=== PATIENT | female | born 1965 | race Caucasian/White ===

== ENCOUNTER 2019-01-15 11:52 | Emergency (ER) | payer SELFPAY ==
[~2019-01-15] VITALS: Ht 162.6 cm; Wt 131.5 kg
[2019-01-15 13:06] LABS: BASOPHILS ABSOLUTE AUTO 0.03 K/mm3 (0.00-0.23); BASOPHILS PERCENT AUTO 0 % (0-2); EOSINOPHILS ABSOLUTE AUTO 0.21 K/mm3 (0.00-0.68); EOSINOPHILS PERCENT AUTO 3 % (0-6); Hematocrit 43.2 % (33.0-51.0); Hemoglobin 13.7 g/dL (11.5-16.0); IMMATURE GRAN ABSOLUTE AUTO 0.03 K/mm3 (0.00-0.10); IMMATURE GRAN PERCENT AUTO 0 % (0-1); LYMPHOCYTES ABSOLUTE AUTO 1.72 K/mm3 (0.84-5.20); LYMPHOCYTES PERCENT AUTO 21 % (21-46); MONOCYTES ABSOLUTE AUTO 0.81 K/mm3 (0.16-1.47); MONOCYTES PERCENT AUTO 10 % (4-13); Mean Corpuscular HGB 27.2 pg (26.0-34.0); Mean Corpuscular HGB Conc 31.7 g/dL (31.5-36.5); Mean Corpuscular Volume 86 fL (80-100); Mean Platelet Volume 9.3 fL (9.1-12.4); NEUTROPHILS ABSOLUTE AUTO 5.46 K/mm3 (1.96-9.15); NEUTROPHILS PERCENT AUTO 66 % (41-73); Platelet Count 240 K/mm3 (150-400); RDW Coefficient Variation 13.9 % (11.7-14.2); RDW Standard Deviation 43.6 fL (35.1-46.3); Red Blood Cell Count 5.03 M/mm3 (3.80-5.20); White Blood Cell Count 8.26 K/mm3 (4.00-11.30)
[2019-01-15 13:28] LABS: Alanine Aminotransfer (ALT/SGP 21 U/L (12-78); Albumin, Blood 3.7 g/dL (3.4-5.0); Alk Phos 112 U/L (50-136); Anion Gap 5 mmol/L (6-16); Aspartate Aminotrans (AST/SGOT 13 U/L (12-37); Bilirubin, Total 0.3 mg/dL (0.1-1.0); Blood Urea Nitrogen 14 mg/dL (8-24); Bun/Creatinine Ratio 24.2 (12.0-20.0); CO2, Blood 30 mmol/L (21-32); Chloride, Blood 107 mmol/L (98-108); Creatinine, Blood 0.58 mg/dL (0.40-1.00); Globulin, Blood 3.8 g/dL (2.2-4.0); Glomerular Filtration Rate >60 (60-); Glucose, Blood 90 mg/dL (70-99); Potassium, Blood 3.9 mmol/L (3.5-5.5); Sodium, Blood 142 mmol/L (136-145); Total Protein, Blood 7.5 g/dL (6.4-8.2); Troponin I <0.015 ng/mL (0.000-0.040)
[2019-01-15] MEDS ORDERED: AZIT250 PO (14:04)
[2019-01-15] MEDS ORDERED: Hydrochlorothia25 MG PO (14:09)
== END 2019-01-15 14:20 | disposition home or self-care (01) ==
LOC: ER 11:52
PROVIDERS: Emergency Medicine
DX: I16.0 Hypertensive urgency (principal); I10 Essential (primary) hypertension; Z79.899 Other long term (current) drug therapy
CPT/HCPCS: 71046; 80053; 83880; 84484; 85025; 93005; 93010; 99284-25

== ENCOUNTER 2021-10-21 08:04 | Day surgery (SDC) | payer OTHER ==
[~2021-10-21] VITALS: Ht 162.6 cm; Wt 134.3 kg
[~2021-10-21 08:04] MED LIST: AZIT250 PO; Hydrochlorothia25 MG PO
--- NOTE | 2021-10-21 08:55 | NUR ---
10/21/21 0855 Katelynn Snowden 2 IV ATTEMPTS, FIRST IN L FOREARM WAS NOT SUCCESSFUL, SECOND IN L HAND WAS SUCCESSFUL
[2021-10-21] MEDS ORDERED: LISINOPRIL-HCT1 EACH PO (08:56)
--- NOTE | 2021-10-21 09:49 | NUR ---
10/21/21 0949 Miguel Odom BUPIVACAINE 0.5% 30 MLS MIXED W/ EPI 0.15 PER ORDER TO MAKE BUPIVACAINE 0.5% 1:200,000 FOR INJECTION AT OPSITE BY DR MIDDLETON. 30 MLS INJECTED.
== END 2021-10-21 11:10 | disposition home or self-care (01) ==
LOC: ORSCSDS 08:04
PROVIDERS: Podiatrist Foot & Ankle Surgery
PROC: 0SGN04Z Fusion of Left Metatarsal-Phalangeal Joint with Internal Fixation Device, Open Approach (ICD-10-PCS; principal; 2021-10-21 09:15)
DX: M20.32 Hallux varus (acquired), left foot (principal); I10 Essential (primary) hypertension; J45.909 Unspecified asthma, uncomplicated; E66.01 Morbid (severe) obesity due to excess calories; Z68.43 Body mass index [BMI] 50.0-59.9, adult; Z79.899 Other long term (current) drug therapy
CPT/HCPCS: C1713; J0171; J0690; J1100; J2250; J2405; J2704; J3010; J7120

== ENCOUNTER 2022-01-31 08:33 | Observation (INO) | payer OTHER ==
[~2022-01-31] VITALS: Ht 157.5 cm; Wt 132.0 kg
[~2022-01-31 08:33] MED LIST changes: +LISINOPRIL-HCT1 EACH PO
[2022-01-31 09:18] LABS: BASOPHILS ABSOLUTE AUTO 0.04 K/mm3 (0.00-0.23); BASOPHILS PERCENT AUTO 0 % (0-2); EOSINOPHILS ABSOLUTE AUTO 0.02 K/mm3 (0.00-0.68); EOSINOPHILS PERCENT AUTO 0 % (0-6); Hematocrit 44.9 % (33.0-51.0); Hemoglobin 14.8 g/dL (11.5-16.0); IMMATURE GRAN ABSOLUTE AUTO 0.05 K/mm3 (0.00-0.10); IMMATURE GRAN PERCENT AUTO 0 % (0-1); LYMPHOCYTES ABSOLUTE AUTO 1.52 K/mm3 (0.84-5.20); LYMPHOCYTES PERCENT AUTO 11 % (21-46); MONOCYTES ABSOLUTE AUTO 0.97 K/mm3 (0.16-1.47); MONOCYTES PERCENT AUTO 7 % (4-13); Mean Corpuscular HGB 26.9 pg (26.0-34.0); Mean Corpuscular Volume 82 fL (80-100); Mean Platelet Volume 9.6 fL (9.1-12.4); NEUTROPHILS ABSOLUTE AUTO 11.51 K/mm3 (1.96-9.15); NEUTROPHILS PERCENT AUTO 82 % (41-73); Platelet Count 329 K/mm3 (150-400); RDW Coefficient Variation 14.5 % (11.7-14.2); RDW Standard Deviation 42.9 fL (35.1-46.3); Red Blood Cell Count 5.51 M/mm3 (3.80-5.20); White Blood Cell Count 14.11 K/mm3 (4.00-11.30)
[2022-01-31 09:39] LABS: Albumin, Blood 3.5 g/dL (3.4-5.0); Albumin/Globulin Ratio 0.9 (0.8-1.8); Bilirubin, Total 0.5 mg/dL (0.1-1.0); Bun/Creatinine Ratio 30.8 (12.0-20.0); Calcium, Blood 9.8 mg/dL (8.5-10.1); Creatinine, Blood 0.55 mg/dL (0.40-1.00); Globulin, Blood 3.9 g/dL (2.2-4.0); Potassium, Blood 4.3 mmol/L (3.5-5.5); Total Protein, Blood 7.4 g/dL (6.4-8.2)
[2022-01-31 10:59] LABS: Source, Urine Clean Catch
[2022-01-31 11:08] LABS: Appearance, Urine Hazy (Clear); Blood, Urine 1+ (Neg); Glucose Qualitative, Urine Neg (Neg); Ketones, Urine 1+ (Neg); Leukocyte Esterase, Urine 1+ (Neg); Nitrite, Urine Neg (Neg); Protein, Urine 2+ (Neg); Urobilinogen, Urine 3+ (Normal)
[2022-01-31 11:19] LABS: Bilirubin, Urine 1+ (Neg)
[2022-01-31 11:28] LABS: Amorphous Mod (0-Heavy); Bacteria Few /hpf; Color, Urine Yellow (P-Yellow); Squamous Epithelial Cells Few /hpf (Few)
--- NOTE | 2022-01-31 15:14 | NUR ---
PT ARRIVED TO UNIT FROM ED TRANSFERRED TO BED FROM [facility] INDEPENDENT[facility]. PLACED MICK HOSE PER ORDERS. CALL LIGHT IN REACH.
--- NOTE | 2022-01-31 17:36 | NUR ---
SUMMARY NO ACUTE CHANGES SINCE ARRIVING FROM ED THIS SHIFT. PT PLEASANT AND COOPERATIVE. AMBULATED TO RESTROOM AND VOIDED. MEDICATED PT PER ORDERS FOR PAIN AND NAUSEA; PT REPORTS BOTH HAVE IMPROVED AFTER MEDICATIONS. IV FLUIDS INFUSING PER ORDRERS. CALL LIGHT IN REACH.
--- NOTE | 2022-02-01 03:44 | NUR ---
PATIENT CARE PROVIDER SUMMARY NO ACUTE CHANGES THIS SHIFT. PT AAOX4 AND INDEPENDENT IN HER ROOM. MEDICATED FOR ABD PAIN WITH 1 MG IV DILAUDID EVERY 4-5 HOURS. PT REPORTS SOME NAUSEA AT TIMES BUT SEEMS TO BE ASSOCIATED WITH PAIN AND IMPROVES AFTER PT RECIEVES PAIN MEDS. PT TO HAVE SMALL BOWEL FOLLOW THROUGH LATER TODAY.
[2022-02-01 05:40] LABS: BASOPHILS ABSOLUTE AUTO 0.04 K/mm3 (0.00-0.23); BASOPHILS PERCENT AUTO 0 % (0-2); EOSINOPHILS ABSOLUTE AUTO 0.14 K/mm3 (0.00-0.68); EOSINOPHILS PERCENT AUTO 1 % (0-6); Hematocrit 36.5 % (33.0-51.0); Hemoglobin 11.6 g/dL (11.5-16.0); IMMATURE GRAN ABSOLUTE AUTO 0.02 K/mm3 (0.00-0.10); IMMATURE GRAN PERCENT AUTO 0 % (0-1); LYMPHOCYTES ABSOLUTE AUTO 2.23 K/mm3 (0.84-5.20); LYMPHOCYTES PERCENT AUTO 23 % (21-46); MONOCYTES ABSOLUTE AUTO 0.89 K/mm3 (0.16-1.47); MONOCYTES PERCENT AUTO 9 % (4-13); Mean Corpuscular HGB 27.1 pg (26.0-34.0); Mean Corpuscular HGB Conc 31.8 g/dL (31.5-36.5); Mean Corpuscular Volume 85 fL (80-100); Mean Platelet Volume 9.6 fL (9.1-12.4); NEUTROPHILS ABSOLUTE AUTO 6.37 K/mm3 (1.96-9.15); NEUTROPHILS PERCENT AUTO 66 % (41-73); Platelet Count 257 K/mm3 (150-400); RDW Coefficient Variation 14.9 % (11.7-14.2); RDW Standard Deviation 46.4 fL (35.1-46.3); Red Blood Cell Count 4.28 M/mm3 (3.80-5.20); White Blood Cell Count 9.69 K/mm3 (4.00-11.30)
[2022-02-01 05:58] LABS: Albumin, Blood 2.7 g/dL (3.4-5.0); Albumin/Globulin Ratio 0.9 (0.8-1.8); Bilirubin, Total 0.6 mg/dL (0.1-1.0); Bun/Creatinine Ratio 32.8 (12.0-20.0); Creatinine, Blood 0.55 mg/dL (0.40-1.00); Globulin, Blood 3.1 g/dL (2.2-4.0); Potassium, Blood 3.9 mmol/L (3.5-5.5); Total Protein, Blood 5.8 g/dL (6.4-8.2)
--- NOTE | 2022-02-01 08:22 | NUR ---
PT TO IMAGING AT THIS TIME
--- NOTE | 2022-02-01 10:40 | NUR ---
Pt. is awake in bed and welcomes my visit. Pt. is unsettled with the discomfort of her bowel blockage. Pt. verbalizes concern that her mother's memorial service at the [place] is this Sunday (in two days) and that she wants to be there. Pt. becomes cathartic as she verbalizes neri concern. With a calming presence and theraputic listening pt. displays evidence of being comforted. Normalized that a [employer] eucharistic volunteer would likely be in to see her today. Prayed with Pt. Pt. verbalized gratitude for the spiritual care visit.
--- NOTE | 2022-02-01 18:24 | NUR ---
SUMMARY: PT ADMITTED FOR SBO. VSS, A/O, INDEP IN ROOM. HAD SBFT TODAY, AND HAS HAD MULTIPLE LIQ BM'S SINCE. PT REPORTS FEELING BETTER WITH LESS PAIN AND NAUSEA. DIET ADVANCED TO CLEARS AND PT IS TOLERATING. NO ACUTE SAFETY CONCERNS.
[2022-02-02 04:28] LABS: BASOPHILS ABSOLUTE AUTO 0.04 K/mm3 (0.00-0.23); BASOPHILS PERCENT AUTO 0 % (0-2); EOSINOPHILS ABSOLUTE AUTO 0.14 K/mm3 (0.00-0.68); EOSINOPHILS PERCENT AUTO 1 % (0-6); Hematocrit 40.8 % (33.0-51.0); Hemoglobin 12.8 g/dL (11.5-16.0); IMMATURE GRAN ABSOLUTE AUTO 0.04 K/mm3 (0.00-0.10); IMMATURE GRAN PERCENT AUTO 0 % (0-1); LYMPHOCYTES ABSOLUTE AUTO 2.03 K/mm3 (0.84-5.20); LYMPHOCYTES PERCENT AUTO 19 % (21-46); MONOCYTES ABSOLUTE AUTO 0.98 K/mm3 (0.16-1.47); MONOCYTES PERCENT AUTO 9 % (4-13); Mean Corpuscular HGB 27.2 pg (26.0-34.0); Mean Corpuscular HGB Conc 31.4 g/dL (31.5-36.5); Mean Corpuscular Volume 87 fL (80-100); Mean Platelet Volume 9.5 fL (9.1-12.4); NEUTROPHILS ABSOLUTE AUTO 7.48 K/mm3 (1.96-9.15); NEUTROPHILS PERCENT AUTO 70 % (41-73); Platelet Count 247 K/mm3 (150-400); RDW Coefficient Variation 14.7 % (11.7-14.2); RDW Standard Deviation 47.3 fL (35.1-46.3); Red Blood Cell Count 4.71 M/mm3 (3.80-5.20); White Blood Cell Count 10.71 K/mm3 (4.00-11.30)
[2022-02-02 04:43] LABS: Anion Gap 10 mmol/L (6-16); Blood Urea Nitrogen 19 mg/dL (8-24); Bun/Creatinine Ratio 33.4 (12.0-20.0); CO2, Blood 24 mmol/L (21-32); Calcium, Blood 8.8 mg/dL (8.5-10.1); Chloride, Blood 107 mmol/L (98-108); Creatinine, Blood 0.57 mg/dL (0.40-1.00); Glomerular Filtration Rate 105 (60-); Glucose, Blood 106 mg/dL (70-99); Magnesium, Blood 1.9 mg/dL (1.6-2.4); Phosphorus, Blood 3.1 mg/dL (2.5-4.9); Potassium, Blood 3.2 mmol/L (3.5-5.5); Sodium, Blood 141 mmol/L (136-145)
--- NOTE | 2022-02-02 10:00 | NUR ---
CLAUDY SMALL AMOUNTS OF CLEAR LIQUIDS. PT REPORTS SLIGHT ABD "SORENESS' but no pain. denies nausea. ambulating in room, voiding clear yellow uriine. pt in agreement with desmond to discharge home, clear liquids,advance diet as tolerated and follow up with dr boyd if needed
--- NOTE | 2022-02-02 10:28 | NUR ---
DISCARGED TO HOME WITH
== END 2022-02-02 10:29 | disposition home or self-care (01) ==
LOC: ER 08:33 → SURS 08:34
PROVIDERS: Student in an Organized Health Care Education/Training Program; ADMIT Family Medicine
DX: K56.600 Partial intestinal obstruction, unspecified as to cause (principal); I10 Essential (primary) hypertension; Z90.49 Acquired absence of other specified parts of digestive tract
CPT/HCPCS: 36415; 74177; 74250; 80053; 80069; 81001; 83690; 83735; 84100; 85025; 87086; 96361; 96372; 96374-59; 96375; 96376; 99285-25; A9270; C9113; G0378; J1170; J1644; J2405; J3010; J7030; J7120; Q9967

== ENCOUNTER 2022-07-11 12:04 | Day surgery (SDC) | payer OTHER ==
[~2022-07-11] VITALS: Ht 162.6 cm; Wt 128.7 kg
== END 2022-07-11 14:05 | disposition home or self-care (01) ==
LOC: ORSCSDS 12:04
PROVIDERS: Student in an Organized Health Care Education/Training Program
PROC: 0DBN8ZX Excision of Sigmoid Colon, Via Natural or Artificial Opening Endoscopic, Diagnostic (ICD-10-PCS; principal; 2022-07-11 13:15)
PROC: 0DBK8ZX Excision of Ascending Colon, Via Natural or Artificial Opening Endoscopic, Diagnostic (ICD-10-PCS; principal; 2022-07-11 13:15)
DX: R10.32 Left lower quadrant pain (principal); Z80.0 Family history of malignant neoplasm of digestive organs; D12.2 Benign neoplasm of ascending colon; K63.5 Polyp of colon; I10 Essential (primary) hypertension; E66.01 Morbid (severe) obesity due to excess calories; Z68.42 Body mass index [BMI] 45.0-49.9, adult; K57.30 Diverticulosis of large intestine without perforation or abscess without bleeding; Z79.899 Other long term (current) drug therapy
CPT/HCPCS: 88305; J2250; J2704; J7040; J7120